=== PATIENT | female | born 1970 | race Caucasian/White ===

== ENCOUNTER 2017-11-27 02:06 | Outpatient (RCR) | payer BC ==
[~2017-11-27 02:06] MED LIST: ALB6.7R INH; AMO875 PO; LEVO25TA56 PO; PRE10 PO
--- NOTE | 2017-11-27 15:36 | RADIOLOGY IMAGING REPORT ---
[place] [facility] [place]: Sarah Chandler : 1970 MR: [id number] V: [id number] EXAM DATE: ORDERING PHYSICIAN: QUINCY SOLIMAN TECHNOLOGIST: Location: [facility] [place] Patient: Sarah Chandler : 1970 Visit/Account:[id number] Date of Sevice: 11/27/2017 Limited abdominal ultrasound of the right upper quadrant Indication: Right upper quadrant pain , Comparison: None available Findings Liver is normal in size, contour, and echotexture and measures 14.1 cm in length. There is normal hep atopedal portal venous flow. Gallbladder wall thickness is 2.6 mm with no evidence of shadowing stone or sludge within the gallbla dder lumen. Negative sonographic Thompson's sign reported by the technologist. Common duct measures 4.1 mm in maximum diameter with no evidence of shadowing stone. The head and proximal body of the pancreas is unremarkable. The distal body and tail is obscured by o verlying bowel gas. Abdominal aorta and IVC are patent and unremarkable. The right kidney is normal in size, contour, and echotexture and measures 9.6 cm in length. There is a simple 2 cm upper pole cortical cyst IMPRESSION: 1. Unremarkable appearance of the gallbladder and no acute abnormality on this ultrasound of the righ t upper quadrant region. Report Dictated By: Davie Galvan at 11/27/2017 3:30 PM Report E-Signed By: Davie Galvan at 11/27/2017 3:32 PM WSN:[email or web address]
== END 2017-11-27 18:00 | disposition home or self-care (01) ==
LOC: US 02:06 → EDSTATUS 14:18 → US 18:00
PROVIDERS: ATTEND Family Medicine
DX: R10.11 Right upper quadrant pain (principal); R14.0 Abdominal distension (gaseous); R11.0 Nausea; K59.00 Constipation, unspecified; R19.7 Diarrhea, unspecified
CPT/HCPCS: 76705

== ENCOUNTER → 2018-09-24 | Outpatient (CLI) | payer BC ==
--- NOTE | 2018-09-24 15:52 | RADIOLOGY IMAGING REPORT ---
[place] [facility] [place] NAME: Sarah Chandler : 1970 MR: [id number] V: [id number] EXAM DATE: ORDERING PHYSICIAN: QUINCY SOLIMAN TECHNOLOGIST: Location: [facility] Patient: Sarah Chandler : 1970 Visit/Account:[id number] Date of Sevice: 09/24/2018 PELVIC INDICATION: Right lower quadrant pain, COMPARISON: 11/30/2015 FINDINGS: Uterus measures 8.7 x 5.0 x 5.3 cm and is homogeneous in echotexture. No mass is identified. Double wall endometrial stripe measures 17 mm and is homogeneous. There is no free fluid in the cul-de-sac. Urinary bladder is empty. Pelvic vessels appear unremarkable on this examination. Right ovary measures 2.5 x 3.0 x 2.6 cm and shows normal blood flow and contains a small 1.8 cm cyst with homogeneous internal echoes Left ovary measures 2.2 x 2.0 x 2.0 cm and shows normal blood flow and contains several small follicl es. IMPRESSION: 1. There is a probable 1.8 cm right ovarian hemorrhagic cyst versus endometrioma. Given the patient 's age, recommend follow-up ultrasound in 2-3 months to document resolution. 2. The endometrium is thickened measuring 17 mm. Correlate with menstrual cycle and if indicated re commend gynecologic consultation for biopsy Report Dictated By: Davie Galvan at 09/24/2018 3:43 PM Report E-Signed By: Davie Galvan at 09/24/2018 3:48 PM WSN:[email or web address]
== END ==
LOC: US 01:25
PROVIDERS: ATTEND Family Medicine
DX: N83.8 Other noninflammatory disorders of ovary, fallopian tube and broad ligament (principal)
CPT/HCPCS: 76830; 76856

== ENCOUNTER → 2018-11-02 | Outpatient (CLI) | payer BC ==
--- NOTE | 2018-11-02 16:32 | RADIOLOGY IMAGING REPORT ---
FACILITY: [facility] - [place] PATIENT NAME: ANTONIO CHOPRA : [id number] MR: [id number] V: [id number] EXAM DATE: [id number] ORDERING PHYSICIAN: QUINCY SOLIMAN TECHNOLOGIST: Irena Prince PROCEDURE: BILATERAL DIGITAL SCREENING MAMMOGRAM WITH CAD ASSISTED INTERPRETATION & 3D TOMOSYNTHESIS REASON FOR STUDY: Screening. COMPARISON: 06/05/14, priors to 03/09/2013. VIEWS OBTAINED: 2D & 3D full field CC & MLO. BREAST DENSITY: The breast parenchyma is heterogeneously dense. MAMMOGRAM FINDINGS: There are no mammographic findings concerning for malignancy. No significant interval change. IMPRESSION: BIRADS 1: Negative. DIAGNOSTIC CATEGORY 1--NEGATIVE. RECOMMENDATIONS: ROUTINE MAMMOGRAM AND CLINICAL EVALUATION. Dictated by: Nasir Murphy on 11/02/2018 at 14:56 Transcribed by: VIRGIL on 11/02/2018 at 15:26 Approved by: Nasir Murphy on 11/02/2018 at 16:30 [facility]
== END ==
LOC: MAMO 00:24
PROVIDERS: ATTEND Family Medicine
DX: Z12.31 Encounter for screening mammogram for malignant neoplasm of breast (principal)
CPT/HCPCS: 77063; 77067